=== PATIENT | male | born 1940 | race Caucasian/White ===

== ENCOUNTER 2021-08-31 15:03 | Inpatient (IN) | payer MEDICARE, OTHER, SELFPAY ==
[2021-08-31] VITALS (21 sets, daily range): BP systolic 110–130; BP diastolic 58–88; PULSE 89–102; RESP 15–32; TEMP 36.4–37.4; O2SAT 85–96; BMI 29.3; BMI 28.4
--- NOTE | 2021-08-31 15:33 | EKG12_ITS ---
Test Reason : FATIQUE Blood Pressure : / mmHG Vent. Rate : 088 BPM Atrial Rate : 088 BPM P-R Int : 130 ms QRS Dur : 156 ms QT Int : 398 ms P-R-T Axes : 030 024 -07 degrees QTc Int : 481 ms Normal sinus rhythm Right bundle branch block T wave abnormality, consider inferior ischemia Abnormal ECG Confirmed by RAYMUNDO CARLOS, RA ([id number]), editor at large AMNA GUZMAN ([id number]) on 09/05/2021 10:01:10 A M Referred By: GLORY Confirmed By:BRENT FONSECA MD
--- NOTE | 2021-08-31 15:33 | CT_ITS ---
STUDY: CTA CHEST REASON FOR EXAM: Male, 81 years old. Substernal chest pain and shortness of breath RADIATION DOSAGE (If Supplied By Facility): CTDIvol = ( 15.71 ) mGy, DLP = ( 475.26 ) mGycm TECHNIQUE: The examination was performed with the intravenous administration of IV 100mL Isovue-370. Post-processing of the angiographic images was performed, with multiplanar reformation and 3D reconstruction. Individualized dose optimization techniques were used for this CT. COMPARISON: None. 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 Normal enhancement of the main pulmonary artery and right and left pulmonary arteries. Normal enhancement of the bilateral peripheral pulmonary arteries. There is no demonstrated pulmonary embolism. Normal thoracic aorta and visualized great vessels. There is no demonstrated aortic dissection. Normal heart and pericardium. There are calcifications of the coronary arteries. Normal mediastinum. Normal hilar regions. There is peribronchial thickening. The lungs are well expanded. Lung windows show chronic interstitial fibrotic scarring in both lung rocha with superimposed groundglass opacifications throughout both lung rocha. No demonstrated effusions. There is dependent atelectasis. This pattern of opacification can be seen with Covid pneumonia, or pneumonitis. Normal chest wall structures. There are degenerative changes of thoracic spine. Limited cuts through the upper abdomen show a 4 cm splenic cyst and left hepatic cyst. CT/CTA Chest W/WO Contrast IMPRESSION: No demonstrated PE, or thoracic aortic aneurysm or dissection Chronic interstitial changes in both lung rocha with superimposed diffuse groundglass opacifications in both lung rocha, and diffuse peribronchial thickening suggesting chronic bronchitis. This pattern of opacification suggests Covid pneumonia. Calcified coronary vessels Degenerative bony changes No suspicious adenopathy Simple splenic and left renal cysts, no specific follow-up needed Electronically Signed: Edi Sol MD at 17:13 EDT , Service support ,
--- NOTE | 2021-08-31 16:07 | EDS_ITS ---
HPI History of Present Illness Chief Complaint: Fatigue Narrative Narrative: Patient is an 81-year-old male with past medical history of Parkinson's disease who lives at home with his . He was diagnosed with Covid on August 27. He states for the past 5 to 7 days he has had increased generalized fatigue/weakness making it difficult to get around at home and care for himself. He denies any chest pain nausea vomiting abdominal pain diarrhea or dysuria. He states EMS was called today because of his symptoms and upon their arrival he was hypoxic in the 60s to 70s and was placed on oxygen. Upon arrival to the ER he was still low at approximately 85. Patient reports no history of lung disorder PFSH PFSH Home Medications amantadine HCl 08/31/21 [History Last Taken Unknown] atorvastatin 08/31/21 [History Last Taken Unknown] carbidopa-levodopa tab PO 08/31/21 [History Last Taken Unknown] doxazosin mg 08/31/21 [History Last Taken Unknown] finasteride mg 08/31/21 [History Last Taken Unknown] glimepiride mg 08/31/21 [History Last Taken Unknown] lisinopril-hydrochlorothiazide tab 08/31/21 [History Last Taken Unknown] metformin mg PO 08/31/21 [History Last Taken Unknown] omeprazole 08/31/21 [History Last Taken Unknown] Allergy/AdvReac Type Severity Reaction Status Date / Time No Known Allergies Allergy Verified 08/31/21 15:06 Social History Smoking Status: Former smoker [facility] ED Constitutional Constitutional ED: Denies chills or fever(s) ENT ENT ED: Denies sore throat Cardiovascular Cardiovascular: Denies chest pain Respiratory/Chest Respiratory/Chest: Reports cough and dyspnea Gastrointestinal Gastrointestinal: Denies abdominal pain, diarrhea, nausea or vomiting Genitourinary Genitourinary ED: Denies dysuria Musculoskeletal Musculoskeletal: Denies myalgias Integumentary Denies rash Neurologic Neurologic: Reports weakness; Denies headache(s) Hematologic/Lymphatic Hematologic/Lymphatic: Denies easy bleeding or easy bruising EXAM Physical Exam Const Vital Signs: 08/31/21 15:06 08/31/21 15:11 08/31/21 15:12 Temperature 98.3 F 98.3 F Temperature Source Oral Oral Pulse Rate 92 91 Respiratory Rate 15 28 H Respiratory Effort Normal Short of Breath Respiratory Pattern Normal Blood Pressure 111/58 L 111/58 L Blood Pressure Mean 75 75 Pulse Ox 95 96 Oxygen Delivery Method Nasal Cannula Nasal Cannula Nasal Cannula Oxygen Flow Rate (L/min) 4 4 4 08/31/21 17:04 08/31/21 17:13 08/31/21 17:16 Temperature 98.1 F Temperature Source Temporal Pulse Rate 91 89 Respiratory Rate 25 H 28 H Respiratory Effort Respiratory Pattern Blood Pressure 117/63 123/61 H Blood Pressure Mean 81 81 Pulse Ox 87 91 95 Oxygen Delivery Method Nasal Cannula Nasal Cannula Nasal Cannula Oxygen Flow Rate (L/min) 6 8 8 Positive well nourished and well developed General Appearance ED: well developed HEENT Reports dry mucous membranes HEENT Narrative: No tongue or lip swelling no oral lesions no airway edema or compromise Mouth ED: Yes dry mucous membranes Mouth: dry mucous membranes Eyes PERRL and EOMs intact bilaterally Neck supple and no JVD Neck Narrative: Positive anterior cervical lymphadenopathy noted Resp Resp Narrative: Breath sounds are diminished throughout with diffuse expiratory wheeze with mild tachypnea but otherwise no acute signs of respiratory distress Cardio regular rate and regular rhythm Rate: other Other Details: Radial pulses are plus 2 out of 4 bilaterally are equal and symmetric GI normal to inspection, nondistended, normoactive bowel sounds, non-tender, non- distended and no masses GI Narrative: No voluntary guarding or rigidity no pulsatile mass Auscultation: normoactive bowel sounds Palpation: soft Extremity normal to inspection Extremity Narrative: No asymmetric edema no pitting edema negative Homans' sign bilaterally Neuro oriented x3 and CN's II-XII intact bilaterally Sensorium / Orientation: alert Psych mental status grossly normal Skin no rashes or lesions noted Skin Narrative: Skin turgor is increased MDM MDM MDM Narrative Medical decision making narrative: Patient presented to EMS and the ER in mild to moderate respiratory distress with hypoxia. He was placed on 4 L nasal cannula oxygen and his pulse ox did improve to approximately 95%. He states he tested positive for Covid on August 27 but there is no documentation of that in the charting system so I will order one at this time. I will also obtain a CTA because of his Covid diagnosis with concern for Covid pneumonia/pneumonitis or even a pulmonary embolus. Basic labs revealed no clinically significant findings but while in the ER the patient's oxygen level dropped to approximately 88% and stayed this way even with an increase to 6 L so he was now placed on high flow nasal cannula oxygen at 8 L getting his oxygen back to approximately 92%. Patient states he typically is able to ambulate around his house with a cane or walker but at this time he is too weak to even perform that function. Therefore with his need for supplemental oxygen as well as his inability to ambulate he is not safe for discharge and we will admit and patient is agreeable to possible rehab placement if necessary. Lab Data Attestation: I reviewed the patient's lab results. Labs: Laboratory Results - last 24 hr 08/31/21 08/31/21 08/31/21 15:20 15:20 15:20 WBC 5.4 RBC 3.34 L Hgb 9.6 L Hct 30.2 L MCV 90.4 MCH 28.7 MCHC 31.8 L RDW Std Deviation 49.1 H RDW Coeff of Steffanie 14.8 H Plt Count 87 L MPV 10.6 Immature Gran % (Auto) 0.200 Neut % (Auto) 91.2 H Lymph % (Auto) 6.5 L [place] % (Auto) 1.9 Eos % (Auto) 0.0 Baso % (Auto) 0.2 Absolute Neuts (auto) 4.9 Absolute Lymphs (auto) 0.35 L Nucleated RBC % 0 Differential Comment SCANNED PT 13.4 INR 1.1 APTT 42.2 H Sodium 138 Potassium 4.5 Chloride 107 Carbon Dioxide 27.0 Anion Gap 4 L BUN 44 H Creatinine 1.89 H Estim Creat Clear Calc 30.58 Est GFR (MDRD) Af Amer 44 L Est GFR (MDRD) Non-Af 36 L BUN/Creatinine Ratio 23.3 H Glucose 200 H Lactic Acid Calcium 8.3 L Magnesium 1.9 Troponin I High Sens 15 B-Natriuretic Peptide Urine Color Urine Clarity Urine pH Ur Specific [place] Urine Protein Urine Glucose (UA) Urine Ketones Urine Occult Blood Urine Nitrite Urine Bilirubin Urine Urobilinogen Ur Leukocyte Esterase Urine RBC Urine WBC Ur Squamous Epith Cells Urine Bacteria Urine Mucus 08/31/21 08/31/21 08/31/21 15:20 15:20 16:20 WBC RBC Hgb Hct MCV MCH MCHC RDW Std Deviation RDW Coeff of Steffanie Plt Count MPV Immature Gran % (Auto) Neut % (Auto) Lymph % (Auto) [place] % (Auto) Eos % (Auto) Baso % (Auto) Absolute Neuts (auto) Absolute Lymphs (auto) Nucleated RBC % Differential Comment PT INR APTT Sodium Potassium Chloride Carbon Dioxide Anion Gap BUN Creatinine Estim Creat Clear Calc Est GFR (MDRD) Af Amer Est GFR (MDRD) Non-Af BUN/Creatinine Ratio Glucose Lactic Acid 1.8 Calcium Magnesium Troponin I High Sens B-Natriuretic Peptide 119.0 H Urine Color Yellow Urine Clarity Sl. Cloudy Urine pH 5.0 Ur Specific [place] 1.015 Urine Protein 30 H Urine Glucose (UA) Normal Urine Ketones 5 H Urine Occult Blood Negative Urine Nitrite Negative Urine Bilirubin Negative Urine Urobilinogen Normal Ur Leukocyte Esterase 25 H Urine RBC 0 SEEN Urine WBC 0-5 SEEN Ur Squamous Epith Cells 0 SEEN Urine Bacteria 0 SEEN Urine Mucus 0 SEEN Radiography Diagnostic Testing: Clinical Impression(s) from Imaging Studies Chest CTA 08/31/21 15:33 IMPRESSION: No demonstrated PE, or thoracic aortic aneurysm or dissection Chronic interstitial changes in both lung rocha with superimposed diffuse groundglass opacifications in both lung rocha, and diffuse peribronchial thickening suggesting chronic bronchitis. This pattern of opacification suggests Covid pneumonia. Calcified coronary vessels Degenerative bony changes No suspicious adenopathy Simple splenic and left renal cysts, no specific follow-up needed Electronically Signed: Edi Sol MD at 17:13 EDT , Service support , Discharge Plan Triage Chief Complaint: Fatigue ED Provider: Neil Paula Dx/Rx/DC Orders Clinical Impression: Acute respiratory failure with hypoxia, COVID-19, Inability to walk Prescriptions: No Action amantadine HCl 100 mg tablet RF: 0 atorvastatin 10 mg tablet RF: 0 carbidopa-levodopa 50-200 mg tablet extended release PO RF: 0 omeprazole 40 mg capsule,delayed release(DR/EC) RF: 0 glimepiride 2 mg tablet RF: 0 doxazosin 4 mg tablet RF: 0 lisinopril-hydrochlorothiazide 10-12.5 mg tablet RF: 0 metformin 500 mg tablet extended release 24 hr PO RF: 0 finasteride 5 mg tablet RF: 0 Primary Care Provider: Jb Yun NP Referrals: Jb Yun MECHANIC SENIOR, MECHANIC SENIOR-C [Primary Care Provider] - Disposition Disposition: Acute Care [facility]
[2021-08-31 16:10] LABS: Absolute Lymphocyte Count 0.35 X10^3/uL (0.83-4.51); Absolute Neutrophil Count 4.9 X10^3/uL (2.0-7.7); Basophil# 0.01 X10^3/uL; Basophil% 0.2 % (0-1); Hematocrit 30.2 % (40-54); Hemoglobin 9.6 g/dL (13.0-16.5); Lymphocyte # 0.35 X10^3/ul (0.83-4.51); Lymphocyte % 6.5 % (19-41); Mean Corp Hgb Conc 31.8 g/dL (32-36); Mean Corpuscular Hgb 28.7 pg (27.0-32.0); Mean Corpuscular Volume 90.4 fL (80-94); Mean Platelet Vol. 10.6 fl (6.2-12.0); Monocyte% 1.9 % (0-10); NRBC Flagged by Analyzer 0 % (0-5); Neutrophil # 4.89 X10^3/uL (2.7-7.7); Neutrophil % 91.2 % (47-70); POSITIVE COUNT YES; POSITIVE DIFFERENTIAL YES; POSITIVE MORPHOLOGY YES; Platelet Count 87 K/mm3 (150-450); RBC Distribution Width CV 14.8 % (11.6-14.6); RBC Distribution Width SD 49.1 fl (35.1-43.9); Red Blood Count 3.34 M/mm3 (4.6-6.2); White Blood Count 5.4 K/mm3 (4.4-11.0)
[2021-08-31 16:11] LABS: International Normalized Ratio 1.1; Prothrombin Time (Protime)PT. 13.4 SECONDS (11.7-14.9)
[2021-08-31] MEDS: dexAMETHasone 10 MG/ML Vial IV (16:11)
[2021-08-31 16:12] LABS: Partial Thromboplast Time 42.2 Seconds (24.1-36.2)
[2021-08-31 16:14] LABS: Differential Indicated SCAN CRITERIA MET
[2021-08-31 16:18] LABS: Lactic Acid 1.8 mmol/L (0.4-1.9)
[2021-08-31 16:26] LABS: Anion Gap 4 (5-15); BUN 44 mg/dL (7-18); BUN/Creat Ratio 23.3 RATIO (10-20); Calcium,Total 8.3 mg/dL (8.5-10.1); Chloride 107 mmol/L (98-107); Creatinine, Serum 1.89 mg/dL (0.70-1.30); EST Glomerular Filtration Rate 36 mL/min (>60); Est Glom Filt Rate - Afr Amer 44 mL/min (>60); Estimated Creatinine Clearance 30.58 ml/min; Glucose 200 mg/dL (74-106); Magnesium 1.9 mg/dL (1.6-2.6); Potassium 4.5 mmol/L (3.5-5.1); Sodium Level 138 mmol/L (136-145); Troponin-I HS 15 pg/mL (3.0-78.0)
[2021-08-31 16:28] LABS: Bacteria 0 SEEN /hpf (None Seen); Mucous, Urine 0 SEEN /hpf (<or=2+); Red Blood Cells-Urine 0 SEEN /hpf (0-5); Squamous Epithelial Cells - UA 0 SEEN /hpf (0-5)
[2021-08-31 16:34] LABS: Differential Comment SCANNED
[2021-08-31 16:41] LABS: Color, Urine Yellow (Yellow); Glucose, Dipstick Normal (Normal); Ketone-Dipstick 5 mg/dl (Negative); Leukocyte Esterase-Dipstick 25 /ul (Negative); Nitrite-Dipstick Negative (Negative); Occult Blood-Urine Negative /ul (Negative); Protein-Dipstick 30 mg/dl (Negative); Specific Gravity, Urine 1.015 (1.002-1.030); Urine Bilirubin Dipstick Negative (Negative); Urine Clarity Sl. Cloudy (Clear); Urine Urobilinogen Normal (Normal)
[2021-08-31 16:51] LABS: White Blood Cells 0-5 SEEN /hpf (0-5)
--- NOTE | 2021-08-31 17:32 | HP.PCM.HOS_ITS ---
HPI - General General Date of Admission: 08/31/21 Date of Service: 08/31/21 Chief Complaint: Recent COVID Dx, worsening. HPI Narrative The patient is an 81 y/o M at home with his w/ PMHx: BPH, Diabetes mellitus type II, HTN, HLD, Parkinson's disease, GERD, Former tobacco use, diagnosed with COVID 08/27/21 with progressively worsening fatigue, malaise, ongoing progressively worsening dyspnea, cough, headache, body aches, fever, chills and sore throat prompting eventual ED evaluation secondary to inability to safely care for himself. Patient's is also ill. Patient was vaccinated against COVID-19; however, unfortunately he did recently go to her an anniversary alliance party where there were several individuals who are unvaccinated. Patient reports being diagnosed by his primary care physician. Work-up in the ED included T 98.3, heart rate 92, BP 111/58, respiratory rate 15-28, 95 to 96% on 4 L nasal cannula initially-->95% 8L NC, CBC with WBC 5.4, hemoglobin 9.6, MCV 90.4, platelet 87 with lymphopenia, coags with PTT 42.2 otherwise not marked appearing, BMP with BUN/creatinine 44/1.89, glucose 200, lactic acid 1.8, troponin high-sensitivity 15, magnesium 1.9, BNP 119, UA not marked appearing with no evidence of UTI, no demonstrated PE, thoracic aortic aneurysm or dissection, chronic interstitial changes in both lung rocha with superimposed diffuse groundglass opacities in both lung rocha as well as diffuse peribronchial thickening suggestive of chronic bronchitis as well as Covid pneumonia. In the ED patient ministered normal saline bolus, albuterol inhalation as well as Decadron 10 mg IV x1. Rapid COVID pending. [facility] Medical History (Updated 08/31/21 @ 19:[address] Trudy Mitchell MD) BPH (benign prostatic hyperplasia) Diabetes mellitus, type 2 Former tobacco use GERD (gastroesophageal reflux disease) HLD (hyperlipidemia) HTN (hypertension) Parkinson disease Home Medications amantadine HCl 100 mg PO BID 08/31/21 [History Last Taken 08/31/21] atorvastatin 10 mg PO DAILY 08/31/21 [History Last Taken 08/31/21] carbidopa-levodopa 1 tab PO 4X/DAY 08/31/21 [History Last Taken 08/31/21] doxazosin 4 mg PO DAILY 08/31/21 [History Last Taken 08/31/21] finasteride 5 mg PO DAILY 08/31/21 [History Last Taken 08/31/21] glimepiride 2 mg PO DAILY 08/31/21 [History Last Taken 08/31/21] lisinopril-hydrochlorothiazide 1 tab PO DAILY 08/31/21 [History Last Taken 08/31/21] metformin 500 mg PO TID 08/31/21 [History Last Taken 08/31/21] omeprazole 40 mg PO DAILY 08/31/21 [History Last Taken 08/31/21] Allergy/AdvReac Type Severity Reaction Status Date / Time No Known Allergies Allergy Verified 08/31/21 15:06 Family History (Updated 08/31/21 @ 19:[address] Trudy Mitchell MD) Mother Heart disease Father Heart disease Surgical History (Updated 08/31/21 @ 19:[address] Trudy Mitchell MD) S/P bilateral inguinal hernia repair S/P partial thyroidectomy Status post total right knee replacement Social History (Updated 08/31/21 @ 19:[address] Trudy Mitchell MD) household members: spouse Smoking Status: Former smoker how long ago did patient quit smoking: Quit 1989, prior 3/4 pack since teenager. alcohol intake: never substance use type: does not use ROS ROS Narrative Admission Review of Systems: CONSTITUTIONAL: No weight loss, + fever, chills, weakness or fatigue. HEENT: + Headache, sore throat, altered sense of taste. Eyes: No visual loss, blurred vision, double vision or yellow sclerae. Ears, Nose, Throat: No hearing loss, sneezing, congestion. SKIN: No rash or itching, lesions, wounds. CARDIOVASCULAR: No chest pain, chest pressure or chest discomfort, palpitations, edema, orthopnea, syncopal events. RESPIRATORY: + shortness of breath, cough without marked sputum, No wheezing, hemoptysis. GASTROINTESTINAL: No anorexia, nausea, vomiting or diarrhea, abdominal pain, melena, BRBPR. GENITOURINARY: + Frequency with BPH, No dysuria, urgency or retention. NEUROLOGICAL: No headache, dizziness, syncope, paralysis, ataxia, numbness or tingling in the extremities, focal weakness, change in bowel or bladder control, seizure. MUSCULOSKELETAL: + muscle, back pain, joint pain or stiffness. HEMATOLOGIC: No anemia, bleeding or bruising. LYMPHATICS: No enlarged nodes. No history of splenectomy. PSYCHIATRIC: No history of depression or anxiety. ENDOCRINOLOGIC: No reports of sweating, cold or heat intolerance. No polyuria or polydipsia. ALLERGIES: No history of asthma, hives, eczema or rhinitis. Vital Signs Vital Signs Vital Signs: 08/31/21 15:06 08/31/21 15:11 08/31/21 15:12 Temperature 98.3 F 98.3 F Temperature Source Oral Oral Pulse Rate 92 91 Respiratory Rate 15 28 H Respiratory Effort Normal Short of Breath Respiratory Pattern Normal Blood Pressure 111/58 L 111/58 L Blood Pressure Mean 75 75 Pulse Ox 95 96 Oxygen Delivery Method Nasal Cannula Nasal Cannula Nasal Cannula Oxygen Flow Rate (L/min) 4 4 4 08/31/21 17:04 08/31/21 17:13 08/31/21 17:16 Temperature 98.1 F Temperature Source Temporal Pulse Rate 91 89 Respiratory Rate 25 H 28 H Respiratory Effort Respiratory Pattern Blood Pressure 117/63 123/61 H Blood Pressure Mean 81 81 Pulse Ox 87 91 95 Oxygen Delivery Method Nasal Cannula Nasal Cannula Nasal Cannula Oxygen Flow Rate (L/min) 6 8 8 Weight Weight: 204 lb 9.423 oz Body Mass Index (BMI) 29.3 Physical Exam Narrative Physical Examination: General: Awake, alert, oriented x 3 and cooperative, seated upright in the ED bed in no apparent distress, fatigued appearing, hoarse voice from coughing he notes. Skin: Normal color, normal turgor, no icterus, no cyanosis. HEENT: AT/NC, EOMI, PERRLA, mildly dry MM, no carotid bruits or JVD noted. Lungs: Diffusely diminished, greater bases, mildly increased respiratory rate and some accessory muscle usage, has increased update liters initially only on 2 upon arrival, no rales, ronchi or wheezing. Heart: Tachycardic with regular; no gallop, rub audible. Abdomen: Soft, overweight, NTTP, ND, mildly hyperactive BS, no obvious evidence of HSM. Extremities: No cyanosis, clubbing, or edema. Neurological: Patient awake, alert, oriented as noted, cognitive function appears baseline intact; pupils equally reactive to light and accommodation, cranial nerves II-XII grossly normal, moving all 4 extremities, no focal deficits, strength moderately to severely global decrease secondary to acute presentation. Psychiatric: Affect appears fatigued, evidence of some respiratory distress, no acute evidence of depressive or anxiety feelings. Results Lab / Micro Data Result Diagrams: 08/31/21 15:20 08/31/21 15:20 Labs: Laboratory Results - last 24 hr 08/31/21 15:20: WBC 5.4, RBC 3.34 L, Hgb 9.6 L, Hct 30.2 L, MCV 90.4, MCH 28.7, MCHC 31.8 L, RDW Std Deviation 49.1 H, RDW Coeff of Steffanie 14.8 H, Plt Count 87 L, MPV 10.6, Immature Gran % (Auto) 0.200, Neut % (Auto) 91.2 H, Lymph % (Auto) 6.5 L, [place] % (Auto) 1.9, Eos % (Auto) 0.0, Baso % (Auto) 0.2, Absolute Neuts (auto) 4.9, Absolute Lymphs (auto) 0.35 L, Nucleated RBC % 0, Differential Comment SCANNED 08/31/21 15:20: PT 13.4, INR 1.1, APTT 42.2 H 08/31/21 15:20: Sodium 138, Potassium 4.5, Chloride 107, Carbon Dioxide 27.0, Anion Gap 4 L, BUN 44 H, Creatinine 1.89 H, Estim Creat Clear Calc 30.58, Est GFR (MDRD) Af Amer 44 L, Est GFR (MDRD) Non-Af 36 L, BUN/Creatinine Ratio 23.3 H , Glucose 200 H, Calcium 8.3 L, Magnesium 1.9, Troponin I High Sens 15 08/31/21 15:20: Lactic Acid 1.8 08/31/21 15:20: B-Natriuretic Peptide 119.0 H 08/31/21 16:20: Urine Color Yellow, Urine Clarity Sl. Cloudy, Urine pH 5.0, Ur Specific [place] 1.015, Urine Protein 30 H, Urine Glucose (UA) Normal, Urine Ketones 5 H, Urine Occult Blood Negative, Urine Nitrite Negative, Urine Bilirubin Negative, Urine Urobilinogen Normal, Ur Leukocyte Esterase 25 H, Urine RBC 0 SEEN, Urine WBC 0-5 SEEN, Ur Squamous Epith Cells 0 SEEN, Urine Bacteria 0 SEEN, Urine Mucus 0 SEEN Radiology Impression Chest CTA 08/31/21 15:33 IMPRESSION: No demonstrated PE, or thoracic aortic aneurysm or dissection Chronic interstitial changes in both lung rocha with superimposed diffuse groundglass opacifications in both lung rocha, and diffuse peribronchial thickening suggesting chronic bronchitis. This pattern of opacification suggests Covid pneumonia. Calcified coronary vessels Degenerative bony changes No suspicious adenopathy Simple splenic and left renal cysts, no specific follow-up needed Electronically Signed: Edi Sol MD at 17:13 EDT , Service support , Assessment & Plan Assessment/Plan (1) Acute respiratory failure with hypoxia: (2) Pneumonia due to COVID-19 virus: PLAN: The patient is an 81 y/o M at home with his w/ PMHx: BPH, Diabetes mellitus type II, HTN, HLD, Parkinson's disease, GERD, Former tobacco use, diagnosed with COVID 08/27/21 with progressively worsening fatigue, malaise, ongoing progressively worsening dyspnea, cough, headache, body aches, fever, chills and sore throat prompting eventual ED evaluation secondary to inability to safely care for himself. 1. Acute Hypoxic Respiratory Failure secondary to Acute Bilateral Pneumonia secondary to Acute Viral Syndrome, COVID-19: Will admit to the PCU on COVID precautions, maintain on comfort precautions, will maintain on oxygen with wean as tolerated to room air, PRN albuterol, HOB, IS parameters w/ pending sputum cultures, respiratory viral panel and urine antigens, will obtain D-dimer to be able to trend, procalcitonin, CRP, CPK, Ferritin, LDH, continue supportive care including q 2 hour turning including prone given no prone bed availability and judicious hydration, closely monitor for worsening status for ARDS and multiorgan failure, will initiate and continue IV decadron x 10 doses, given presentation timeline, given patient creatinine clearance currently 30 will defer remdesivir usage but closely monitor renal function and may consider initiation if improves with repeat a.m. labs. 2. Acute kidney injury versus chronic kidney disease, unclear stage: Secondary to acute presentation as noted #1. Admission BUN/Cr 44/1.9, prior baseline creatinine unknown, will request records from PCP office. Will judiciously hydrate given #1, hold nephrotoxic medications and repeat chemistry in AM. If no improvement would plan FeNa and ultrasound assessment. 3. Parkinson's disease: We will continue patient home amantadine and Sinemet regimen, maintain on fall precautions, complicates presentation, PT/OT/case management consultations for discharge planning. 4. Diabetes mellitus type II with Hyperglycemia: Hold oral home regimen, given hyperglycemia will obtain HgBA1c, continue ADA diet, accu checks w/ ISS. 5. Hypertension: Given unclear baseline renal function, possible MARIMAR, will hold lisinopril and hydrochlorothiazide temporarily, PRN hydralazine. 6. Hyperlipidemia: We will continue patient on statin therapy. 7. BPH: We will continue patient home finasteride and doxazosin regimen. 8. GERD: We will continue patient home PPI. 9. DVT prophylaxis: SCDs, renally dosed lovenox. 10. CODE status: Patient MATTHEW is his daughter who is present as well as a son and living will is currently in place. Discussed CODE status at length including difference between FULL code, DNR-CCA and DNR-CC status. Following discussions about the differences in these status, requested Full Code status. Advanced Care Planning Face to Face Time: 16 minutes. Charges/Coding Visit Charges Inpatient E&M: 41801 Init Hosp L3 Procedures Hospitalists Procedures: 83413 Advncd Care Plan 30 Min
--- NOTE | 2021-08-31 17:33 | NURSING ---
DR HUNT FOR DR LIZARRAGA
--- NOTE | 2021-08-31 17:47 | NURSING ---
PCU WHITE COVID PNEUMONIA WITH HYPOXIA
[2021-08-31 18:08] LABS: D-Dimer Quantitative (DVT/PE) 0.77 FEU/ug/m (0.27-0.49)
[2021-08-31 18:27] LABS: Procalcitonin 0.68 ng/mL (0.00-0.09)
[2021-08-31 18:47] LABS: Ferritin 525 ng/mL (26-388); LDH 338 U/L (87-241); Magnesium 1.8 mg/dL (1.6-2.6)
[2021-08-31] MEDS: 0.9% Normal Saline 1,000 ML 100 ML IV (19:40)
[2021-08-31 20:51] LABS: Bedside Glucose 192 mg/dL (70-110)
[2021-08-31] MEDS: Amantadine 100 MG Capsule PO (21:02)
[2021-08-31] MEDS: Atorvastatin Calcium 10 MG Tablet PO (21:04)
[2021-08-31] MEDS: CARBIDOPA/LEVODOPA CR 50/200 Tablet PO (21:04)
[2021-08-31] MEDS: Insulin Lispro 100 UNIT/ML INSULN.PEN SC (21:04)
[2021-08-31] MEDS: MELATONIN 3 MG TABLET PO (23:19)
--- NOTE | 2021-08-31 23:29 | NURSING ---
pt took his monitor off. pt forgetful. pt pulled up and repostion on his side.
--- NOTE | 2021-08-31 23:36 | NURSING ---
pt po 85% on airvo 60l fi02 80%. resp in to increase 02
--- NOTE | 2021-08-31 23:55 | NURSING ---
Asked pt if able to give an update to grand daughter. pt said ok.
[2021-09-01] VITALS (15 sets, daily range): BP systolic 122–156; BP diastolic 65–94; PULSE 87–135; RESP 12–37; TEMP 37.1–37.9; O2SAT 79–96
--- NOTE | 2021-09-01 00:20 | PCM.HOSP.N ---
Hospitalist Note Pt placed on BiPAP. HLIV. Give 1x dose of furosemide. Consult Pulm and ID. Nurse noting pt being anxious, but keeping BiPAP on. Will avoid sedating medications for now.
[2021-09-01] MEDS: 0.9% Saline Lock 10 ML Syringe IV (00:36)
[2021-09-01] MEDS: Furosemide 40 MG/4 ML Vial IV (00:38)
--- NOTE | 2021-09-01 00:47 | NURSING ---
pt pulled up and repostion in bed. Pt requesting water. Pt informing nothing at this time. Pt c/o restless. Inform pt that dr vargas said none at this time.
--- NOTE | 2021-09-01 01:06 | NURSING ---
PO 88-89 % ON BIPAP 80%. FI02 INCREASED TO 90%.
--- NOTE | 2021-09-01 01:18 | NURSING ---
FI02 ON BIPAP INCREASE 90%
[2021-09-01 02:06] LABS: Allen Test Positive; Base Excess -5 mmol/L (-2 to +2); Bicarbonate 21.9 mmol/L (22-26); Blood Gas Specimen Type ART; FI02 90; O2 Delivery Device BiPAP; PO2 56 mmHG (75-100); SITE L Radial; SO2 85 % (95-99); Total Carbon Dioxide 23 mmol/L; pCO2 44.7 mmHg (35-45)
--- NOTE | 2021-09-01 02:15 | NURSING ---
daughter Angela called about pt being transfered to icu
--- NOTE | 2021-09-01 02:18 | NURSING ---
Grand daughter called about pt being transferred. phone
[2021-09-01 04:01] LABS: Absolute Lymphocyte Count 0.25 X10^3/uL (0.83-4.51); Absolute Neutrophil Count 5.8 X10^3/uL (2.0-7.7); Hematocrit 33.8 % (40-54); Hemoglobin 10.6 g/dL (13.0-16.5); Lymphocyte # 0.25 X10^3/ul (0.83-4.51); Mean Corp Hgb Conc 31.4 g/dL (32-36); Mean Corpuscular Hgb 28.7 pg (27.0-32.0); Mean Corpuscular Volume 91.6 fL (80-94); Mean Platelet Vol. 9.4 fl (6.2-12.0); Monocyte# 0.11 X10^3/uL; Monocyte% 1.8 % (0-10); NRBC Flagged by Analyzer 0 % (0-5); Neutrophil # 5.78 X10^3/uL (2.7-7.7); Neutrophil % 93.2 % (47-70); POSITIVE COUNT YES; POSITIVE DIFFERENTIAL YES; POSITIVE MORPHOLOGY YES; Platelet Count 90 K/mm3 (150-450); RBC Distribution Width CV 14.9 % (11.6-14.6); RBC Distribution Width SD 50.3 fl (35.1-43.9); Red Blood Count 3.69 M/mm3 (4.6-6.2); White Blood Count 6.2 K/mm3 (4.4-11.0)
[2021-09-01 04:07] LABS: Differential Indicated SCAN CRITERIA MET
[2021-09-01 04:14] LABS: ALB/GLOB Ratio 0.5 RATIO (0.9-2.4); AST(SGOT) 34 U/L (15-37); Alanine Aminotransfer ALT/SGPT 10 U/L (16-61); Albumin, Serum 2.1 g/dL (3.2-5.0); Alkaline Phosphatase 69 U/L (45-117); Anion Gap 9 (5-15); BUN 41 mg/dL (7-18); BUN/Creat Ratio 22.3 RATIO (10-20); Calcium,Total 7.8 mg/dL (8.5-10.1); Chloride 109 mmol/L (98-107); Creatinine, Serum 1.84 mg/dL (0.70-1.30); EST Glomerular Filtration Rate 38 mL/min (>60); Est Glom Filt Rate - Afr Amer 45 mL/min (>60); Estimated Creatinine Clearance 31.41 ml/min; Globulin 3.9 g/dL (2.2-4.2); Glucose 274 mg/dL (74-106); Potassium 3.9 mmol/L (3.5-5.1); Sodium Level 142 mmol/L (136-145)
[2021-09-01 04:59] LABS: International Normalized Ratio 1.2; Prothrombin Time (Protime)PT. 14.2 SECONDS (11.7-14.9)
--- NOTE | 2021-09-01 05:47 | NURSING ---
0534 monitor showed joshua to asystole. patient DNRCC-A. bipap removed, RT bagging patient. [employer] called 0537 monitor PEA, then pulse and blood pressure obtained 0542 atropine 1 mg iv given. pulse rate up to 87, but PEA then asystole 0547 monitor asystole, no pulse, no respirations
--- NOTE | 2021-09-01 05:59 | PCM.DEATH ---
Preliminary Cause of Preliminary Cause of Preliminary Cause of : COVID 19 Date of Admission: 08/31/21 Principle Diagnosis Problem List: Active and Suspected Problems (Updated 08/31/21 @ 19:[address] Trudy Mitchell MD) Pneumonia due to COVID-19 virus (Acute) Acute respiratory failure with hypoxia (Acute) COVID-19 (Acute) Inability to walk (Acute) Hospital Course This is an 81-year-old male who was found to have COVID-19 on August 27, developed worsening fatigue, malaise patient presented to the emergency room with acute hypoxic respiratory failure. Patient developed COVID-19 despite previously having been vaccinated apparently had not received his booster shot. He did attend an anniversary green party where there were people who are unvaccinated. Patient pulse ox of 85% on room air. He was placed on air Vo and admitted to the floor. His respiratory status worsened changed over to BiPAP. Patient still had very poor oxygenation with pulse ox ranging in the 85% range. At that time, patient was full CODE STATUS and patient. Be declining so the concern was for worsening respiratory status patient was moved to the ICU. Was patient was moved to the ICU I discussed with the patient and confirmed his CODE STATUS DNR Comfort Care arrest no intubation. Patient was changed over to AVAPS and seems to have tolerated that better. Patient was agitated and was started on dexmedetomidine so he could better tolerate AVAPS. On the morning of the fourth, a rapid response team was called. Patient developed asystole. Patient was pronounced at 0547 on 09/01/2021. Assessment & Plan Assessment/Plan (1) Pneumonia due to COVID-19 virus: (2) Acute respiratory failure with hypoxia: (3) Asystole: Visit Charges Inpatient E&M: [id number] Disch Hosp
--- NOTE | 2021-09-01 06:06 | NURSING ---
inform daughter of pt passing, she is with her mother and will inform her, they will call back and let us know if they will come see the pt.
[2021-09-01 08:58] LABS: Hemoglobin A1c 7.5 % (3.8-5.6)
== END 2021-09-01 09:49 | DRG 177 ==
LOC: ED 17:43 → PCU 17:52 → ICU 09-01 02:26
PROVIDERS: Admitting Provider Family Medicine; Emergency Provider Emergency Medicine; PCP Nurse Practitioner Family; Visit Provider Family Medicine
DX: U07.1 COVID-19 (principal); J96.01 Acute respiratory failure with hypoxia; J12.82 Pneumonia due to coronavirus disease 2019; I46.9 Cardiac arrest, cause unspecified; G20 Parkinson's disease; Z66 Do not resuscitate; E78.5 Hyperlipidemia, unspecified; E11.65 Type 2 diabetes mellitus with hyperglycemia; K21.9 Gastro-esophageal reflux disease without esophagitis; N40.0 Benign prostatic hyperplasia without lower urinary tract symptoms; Z87.891 Personal history of nicotine dependence; N28.1 Cyst of kidney, acquired; R45.1 Restlessness and agitation; E11.22 Type 2 diabetes mellitus with diabetic chronic kidney disease; N18.9 Chronic kidney disease, unspecified; D72.810 Lymphocytopenia; I12.9 Hypertensive chronic kidney disease with stage 1 through stage 4 chronic kidney disease, or unspecified chronic kidney disease; Z79.84 Long term (current) use of oral hypoglycemic drugs; Z82.49 Family history of ischemic heart disease and other diseases of the circulatory system; Z96.651 Presence of right artificial knee joint
CPT/HCPCS: 36600; 71275; 80048; 80053; 81001; 82728; 82803; 82962; 83036; 83605; 83615; 83735; 83880; 84145; 84484; 85025; 85379; 85610; 85730; 86140; 87070; 87205; 87426; 87449; 87633; 93005; 94002; 94660; 99251; 99285; J7030; J7040; Q9967; A4216; G0463; J1940